=== PATIENT | female | born 1940 | race Caucasian/White ===

== ENCOUNTER 2019-12-30 04:33 | Inpatient (IN) | payer OTHER ==
[~2019-12-30] VITALS: Ht 165.1 cm; Wt 69.4 kg
[~2019-12-30 04:33] MED LIST: ALBU8HFA IH; ASPI-728 PO; ATEN-73 PO; ATOR40TA28 PO; BUDE180H IH; CITA-144 PO; FAMO20 PO; FURO40 PO; HYDR-3965 PO; IPRA3S NASAL; IRON-18 PO; NITR0.4T52 SL; NYST100033 PO; OLOD4MIS2 PO; POTA10TA PO; PRED10 PO; PREMC VG; SOTA80 PO; SUCR1TAB PO; TIOT185 IH
[2019-12-30] MEDS ORDERED: MethylPREDNISolone SOD SUCC 125 MG/2 ML VIAL IVP ONE (04:45)
[2019-12-30] MEDS ORDERED: SODIUM CHLORIDE 0.9% 1,000 ML IV ONE (04:45)
[2019-12-30] MEDS ORDERED: ALBUTEROL SULFATE 5 MG/ML 20 ML NEB SOLN [BULK] NEB ONE (04:45)
[2019-12-30] MEDS ORDERED: IPRATROPIUM BROMIDE 0.5 MG/2.5 ML NEB SOLUTION NEB ONE (04:45)
[2019-12-30 05:14] LABS: ABG A-A DIFF O2 497.5 mmHg (10-20.0); ABG BASE EXCESS -3.8 mmol/L (-2.0-3.0); ABG CARBOXYHEMOGLOBIN 0.8 % (0.0-1.5); ABG HCO3 21.6 mmol/L (22.0-26.0); ABG METHEMOGLOBIN 0.3 % (0.0-1.5); ABG OXYGEN CONTENT 21.4 mL/dL (15.0-23.0); ABG OXYHEMOGLOBIN 97.9 % (94.0-100.0); ABG PCO2 40 mmHg (35-45); ABG PH 7.353 (7.35-7.450); ABG TOTAL HEMOGLOBIN 15.3 G/dL (12.0-18.0); PO2, ARTERIAL BG 175.5 mmHg (71.0-79.0); SOURCE, BLOOD GAS ARTERIAL; TEMPERATURE, FAHRENHEIT, BG 98.6 FAHREN (96.0-98.6)
[2019-12-30 05:18] LABS: SITE, BLOOD GAS RT RADIAL
[2019-12-30 05:19] LABS: O2 DEVICE,BLOOD GAS AEROSOL MASK (ROOM AIR)
[2019-12-30 05:44] LABS: BASOPHILS % (AUTO) 0.5 % (0.0-2.0); EOSINOPHILS % (AUTO) 8.8 % (1.0-6.0); HEMATOCRIT 43.8 % (36-46); HEMOGLOBIN 14.3 g/dL (12.0-16.0); LYMPHOCYTES # (AUTO) 0.3 K/uL (1.0-4.8); LYMPHOCYTES % (AUTO) 6.3 % (22.0-44.0); MEAN CORPUSCULAR HEMOGLOBIN 31.5 pg (26.0-34.0); MEAN CORPUSCULAR HGB CONC 32.6 G/dL (31.0-37.0); MEAN CORPUSCULAR VOLUME 97 fL (80-100); MONOCYTES # (AUTO) 0.2 K/uL (0.1-1.0); MONOCYTES % (AUTO) 4.9 % (2.0-9.0); NEUTROPHILS % (AUTO) 79.5 % (40.0-70.0); PLATELET COUNT (AUTO) 200 K/uL (150-450); RED BLOOD CELL COUNT(AUTO) 4.54 MIL/uL (4.00-5.20); RED CELL DISTRIBUTION WIDTH 14.2 % (11.5-14.5)
[2019-12-30] MEDS ORDERED: PIPERACILLIN/TAZO 3.375 GM/D5W 50 ML IV ONE (05:45)
[2019-12-30] MEDS ORDERED: ACETAMINOPHEN 650 MG RECTAL SUPPOSITORY PR ONE (05:45)
[2019-12-30] MEDS ORDERED: VANCOMYCIN HCL 1 GM/D5% WATER 200 ML IV ONE (05:45)
[2019-12-30 05:49] LABS: APPEARANCE,URINE CLOUDY (CLEAR); BILIRUBIN,URINE NEGATIVE (NEGATIVE); GLUCOSE, URINE (UA) NEGATIVE (NEGATIVE); KETONES,URINE NEGATIVE (NEGATIVE); LEUKOCYTE ESTERASE ,URINE NEGATIVE (NEGATIVE); NITRATE,URINE NEGATIVE (NEGATIVE); OCCULT BLOOD,URINE NEGATIVE (NEGATIVE); PH,URINE 7.5 (5.0-8.0); PROTEIN,URINE TRACE (NEGATIVE)
[2019-12-30 05:53] LABS: BACTERIA,URINE Rare /HPF (None Seen); RBC,URINE 0-2 /HPF (0-2); SQUAMOUS EPITHELIAL CELL,UR Few /LPF (None Seen); WBC,URINE 0-2 /HPF (0-5)
[2019-12-30 06:05] LABS: ANION GAP 12 mmol/L (8-16); CALCIUM, TOTAL 9.4 mg/dL (8.8-10.5); CARBON DIOXIDE 25 mmol/L (22-29); CHLORIDE 103 mmol/L (98-107); CREATININE 1.14 mg/dL (0.60-1.30); GLOMERULAR FILTR. RATE CALC 46 mL/min (>60); GLUCOSE,RANDOM 149 mg/dL (70-110); POTASSIUM 3.2 mmol/L (3.5-5.1); SODIUM SERUM 140 mmol/L (136-145); UREA NITROGEN, BLOOD 11 mg/dL (7-18)
[2019-12-30 06:07] LABS: ALANINE AMINOTRANSFERASE 281 U/L (12-78); ALBUMIN 3.2 g/dL (3.4-5.0); ALKALINE PHOSPHATASE 166 U/L (46-116); ASPARTATE AMINOTRANSFERASE 405 U/L (15-37); BILIRUBIN,TOTAL 3.8 mg/dL (0.1-1.0); CREATINE KINASE, TOTAL ONLY 61 U/L (26-192)
[2019-12-30] MEDS ORDERED: IOVERSOL 350 MG/ML 100 ML VIAL ONE (06:16)
[2019-12-30] MEDS ORDERED: SODIUM CHLORIDE 0.9% 100 ML ONE (06:16)
[2019-12-30 06:20] LABS: B-TYPE NATRIURETIC PEPTIDE 101 pg/mL (0-100)
[2019-12-30 06:22] LABS: LACTIC ACID 3.6 mmol/L (0.4-2.0)
[2019-12-30] MEDS ORDERED: MAGNESIUM SULFATE 2 GM/WATER 50 ML IV ONE (07:30)
[2019-12-30] MEDS: POTASSIUM CHL 10 MEQ/WATER 50 ML IV PRN ×3 (08:01→10:45)
[2019-12-30] MEDS ORDERED: DEXTROSE 50%-WATER 25 GM/50 ML SYRINGE IVP PRN (11:00)
[2019-12-30] MEDS ORDERED: *CLINICAL-CEFEPIME DOSING CLINICAL ONE (11:00)
[2019-12-30] MEDS ORDERED: INSULIN LISPRO 100 UNITS/ML SQ PRN (11:00)
[2019-12-30] MEDS ORDERED: *CLINICAL-AZTREONAM DOSING CLINICAL ONE (11:00)
[2019-12-30] MEDS ORDERED: ALBUTEROL SULFATE/IPRATROPIUM 100-20 MCG/SPRAY 4 GM INHALER IH PRN (11:00)
[2019-12-30] MEDS ORDERED: DOCUSATE SODIUM 100 MG CAPSULE PO PRN (11:15)
[2019-12-30] MEDS ORDERED: BISACODYL 10 MG RECTAL RECTAL SUPPOSITORY PR PRN (11:15)
[2019-12-30] MEDS ORDERED: MAGNESIUM HYDROXIDE SUSPENSION 30 ML UDCUP PO PRN (11:15)
[2019-12-30] MEDS ORDERED: NITROGLYCERIN 0.4 MG SUBLINGUAL TABLET #25 SL PRN (11:15)
[2019-12-30] MEDS ORDERED: 0.9% SODIUM CHLORIDE 10 ML SYRINGE IVP PRN (11:15)
[2019-12-30] MEDS ORDERED: ONDANSETRON HCL 4 MG/2 ML VIAL IVP PRN (11:15)
[2019-12-30 11:33] LABS: GLUCOSE,POINT OF CARE 168 MG/DL (70-110)
[2019-12-30] MEDS ORDERED: TIOT4MIS3 IH (11:44)
[2019-12-30] MEDS ORDERED: HYDR-4061 PO (11:44)
[2019-12-30] MEDS ORDERED: PREMC VG (11:44)
[2019-12-30] MEDS ORDERED: PANT40TA25 PO (11:44)
[2019-12-30] MEDS ORDERED: BUDE180H IH (11:44)
[2019-12-30] MEDS ORDERED: CLOP75TA32 PO (11:44)
[2019-12-30 11:45] LABS: INFLUENZA TYPE A NEGATIVE FOR TYPE A (NEGATIVE); INFLUENZA TYPE B NEGATIVE FOR TYPE B (NEGATIVE)
[2019-12-30] MEDS: ASPIRIN 81 MG CHEWABLE TABLET PO SCH (12:14)
[2019-12-30] MEDS ORDERED: CEFEPIME HCL 1 GM in DEXTROSE 5%-WATER 50 ML IV ONE (12:15)
[2019-12-30] MEDS ORDERED: AZTREONAM 1 GM in DEXTROSE 5%-WATER 50 ML IV ONE (12:15)
[2019-12-30] MEDS: PANTOPRAZOLE SODIUM 40 MG DR TABLET PO SCH (12:15)
[2019-12-30 12:20] LABS: CALCIUM, TOTAL 9.2 mg/dL (8.8-10.5); CREATININE 0.98 mg/dL (0.60-1.30); MAGNESIUM 2.3 mg/dL (1.80-2.40); POTASSIUM 3.7 mmol/L (3.5-5.1)
[2019-12-30 14:41] VITALS: BP 140/77
[2019-12-30] MEDS ORDERED: HEPARIN SODIUM,PORCINE 5,000 UNITS/ML VIAL IVP PRN ×2 (14:45)
[2019-12-30] MEDS ORDERED: HEPARIN SODIUM,PORCINE 5,000 UNITS/ML VIAL IVP ONE (14:45)
[2019-12-30 15:46] LABS: HEMOGLOBIN 13.2 g/dL (12.0-16.0); MEAN CORPUSCULAR HEMOGLOBIN 30.9 pg (26.0-34.0); MEAN CORPUSCULAR HGB CONC 32.1 G/dL (31.0-37.0); MEAN CORPUSCULAR VOLUME 96 fL (80-100); PLATELET COUNT (AUTO) 150 K/uL (150-450); RED BLOOD CELL COUNT(AUTO) 4.26 MIL/uL (4.00-5.20); RED CELL DISTRIBUTION WIDTH 14.3 % (11.5-14.5)
[2019-12-30 16:04] LABS: PROTHROMBIN TIME 10.1 SEC (9.4-11.6)
[2019-12-30 16:05] LABS: BAND NEUTROPHILS % (MANUAL) 22 % (0-5); LYMPHOCYTES % (MANUAL) 11 % (22-44); PROMYELOCYTES % 1 (0-0)
[2019-12-30 16:06] LABS: MONOCYTES % (MANUAL) 6 % (2-9); SEGMENTED NEUTROPHILS % 60 % (40-70)
[2019-12-30 16:07] LABS: PLATELET MORPHOLOGY COMMENT GIANT PLTS PRESENT; WBC MORPHOLOGY TOXIC VACUOLATION
[2019-12-30 16:39] VITALS: BP 135/77
[2019-12-30 17:26] LABS: ALBUMIN 2.6 g/dL (3.4-5.0); BILIRUBIN,DIRECT 3.6 mg/dL (0.00-0.20); BILIRUBIN,TOTAL 4.5 mg/dL (0.1-1.0); TOTAL PROTEIN, SERUM 5.9 g/dL (6.4-8.2)
[2019-12-30] MEDS: ALBUTEROL SULFATE/IPRATROPIUM 100-20 MCG/SPRAY 4 GM INHALER IH SCH (18:31)
[2019-12-30] MEDS ORDERED: SODIUM CHLORIDE 0.9% 500 ML IV ONE (18:53)
[2019-12-30] MEDS: PIPERACILLIN/TAZO 3.375 GM/D5W 50 ML IV SCH ×2 (18:56→23:44)
[2019-12-30 19:40] VITALS: BP 116/56
[2019-12-30] MEDS: LACTOBACILLUS ACIDOPHILUS/BULGARICUS TABLET PO SCH (20:56)
[2019-12-30] MEDS: ESTROGENS,CONJUGATED 0.625 MG/GM 30 GM VAG CREAM VG SCH (20:56)
[2019-12-30] MEDS: SUCRALFATE 1 GM TABLET PO SCH (20:56)
[2019-12-30] MEDS: BUDESONIDE 180 MCG/INH INHALER [120] IH SCH (20:56)
[2019-12-30] MEDS ORDERED: HEPARIN SODIUM,PORCINE 5,000 UNITS/ML VIAL SQ SCH (21:00)
[2019-12-30 21:51] LABS: GLUCOMETER DEV NAME(LOC) 5N.1; GLUCOSE,POINT OF CARE 173 MG/DL (70-110)
[2019-12-30] MEDS ORDERED: AZTREONAM 1 GM in DEXTROSE 5%-WATER 50 ML IV SCH (22:00)
[2019-12-30] MEDS: HEPARIN SODIUM 25000 UNITS/D5W 250 ML IV PRN (23:47)
[2019-12-31] MEDS: ACETAMINOPHEN 325 MG TABLET PO PRN ×2 (00:08→16:19)
[2019-12-31] MEDS: ALBUTEROL SULFATE/IPRATROPIUM 100-20 MCG/SPRAY 4 GM INHALER IH SCH ×5 (00:13→23:48)
[2019-12-31 00:15] VITALS: BP 131/74
[2019-12-31 04:00] VITALS: BP 126/64
[2019-12-31] MEDS: PIPERACILLIN/TAZO 3.375 GM/D5W 50 ML IV SCH ×4 (06:12→23:47)
[2019-12-31 07:02] LABS: BASOPHILS % (AUTO) 0.1 % (0.0-2.0); EOSINOPHILS % (AUTO) 0.4 % (1.0-6.0); HEMATOCRIT 35.2 % (36-46); HEMOGLOBIN 11.9 g/dL (12.0-16.0); LYMPHOCYTES # (AUTO) 0.7 K/uL (1.0-4.8); LYMPHOCYTES % (AUTO) 6.2 % (22.0-44.0); MEAN CORPUSCULAR HEMOGLOBIN 32.8 pg (26.0-34.0); MEAN CORPUSCULAR HGB CONC 33.9 G/dL (31.0-37.0); MEAN CORPUSCULAR VOLUME 97 fL (80-100); MONOCYTES # (AUTO) 0.5 K/uL (0.1-1.0); MONOCYTES % (AUTO) 5.2 % (2.0-9.0); NEUTROPHILS # (AUTO) 9.3 K/uL (1.8-7.7); PLATELET COUNT (AUTO) 144 K/uL (150-450); RED BLOOD CELL COUNT(AUTO) 3.64 MIL/uL (4.00-5.20); RED CELL DISTRIBUTION WIDTH 14.5 % (11.5-14.5)
[2019-12-31 07:07] LABS: NEUTROPHILS % (AUTO) 88.1 % (40.0-70.0)
[2019-12-31 07:27] LABS: HEMOGLOBIN A1C 5.8 % (3.8-5.6)
[2019-12-31 07:38] VITALS: BP 151/95
[2019-12-31 07:49] LABS: ALBUMIN 2.6 g/dL (3.4-5.0); BILIRUBIN,TOTAL 1.3 mg/dL (0.1-1.0); CALCIUM, TOTAL 9.6 mg/dL (8.8-10.5); CHOL/HDL RATIO 1.9 (3.9-5.7); CREATININE 0.98 mg/dL (0.60-1.30); FREE T4 (FREE THYROXINE) 1.46 ng/dL (0.76-1.46); THYROID STIMULATING HORMONE 0.18 uIU/mL (0.36-3.74); TOTAL PROTEIN, SERUM 5.9 g/dL (6.4-8.2)
[2019-12-31] MEDS: BUDESONIDE 180 MCG/INH INHALER [120] IH SCH ×2 (08:18→20:19)
[2019-12-31] MEDS: ASPIRIN 81 MG CHEWABLE TABLET PO SCH (09:00)
[2019-12-31] MEDS ORDERED: CEFEPIME HCL 1 GM in DEXTROSE 5%-WATER 50 ML IV SCH (11:00)
[2019-12-31 11:43] VITALS: BP 133/73
[2019-12-31] MEDS ORDERED: MEBROFENIN TC99M/MCL ISOTOPE 1 EA INJ INJ ONE (14:50)
[2019-12-31] MEDS: SUCRALFATE 1 GM TABLET PO SCH ×2 (16:19→20:17)
[2019-12-31] MEDS: PANTOPRAZOLE SODIUM 40 MG DR TABLET PO SCH (16:19)
[2019-12-31] MEDS: MULTIVITAMINS WITH IRON TABLET PO SCH (16:19)
[2019-12-31] MEDS: ATORVASTATIN CALCIUM 40 MG TABLET PO SCH (16:19)
[2019-12-31] MEDS: CITALOPRAM HYDROBROMIDE 20 MG TABLET PO SCH (16:19)
[2019-12-31] MEDS: ATENOLOL 25 MG TABLET PO SCH (16:20)
[2019-12-31] MEDS: LACTOBACILLUS ACIDOPHILUS/BULGARICUS TABLET PO SCH ×2 (16:20→20:17)
[2019-12-31 19:40] VITALS: BP 116/60
[2019-12-31 19:56] LABS: GLUCOMETER DEV NAME(LOC) 5N.3; GLUCOSE,POINT OF CARE 99 MG/DL (70-110)
[2019-12-31 19:56] LABS: GLUCOMETER DEV NAME(LOC) 5N.3; GLUCOSE,POINT OF CARE 85 MG/DL (70-110)
[2019-12-31 19:56] LABS: GLUCOMETER DEV NAME(LOC) 5N.1; GLUCOSE,POINT OF CARE 98 MG/DL (70-110)
[2019-12-31] MEDS: ESTROGENS,CONJUGATED 0.625 MG/GM 30 GM VAG CREAM VG SCH ×2 (20:17→20:44)
[2019-12-31] MEDS: HEPARIN SODIUM 25000 UNITS/D5W 250 ML IV PRN (23:50)
[2020-01-01] VITALS: BP 129/70
[2020-01-01 01:22] LABS: GLUCOMETER DEV NAME(LOC) 5N.1; GLUCOSE,POINT OF CARE 72 MG/DL (70-110)
[2020-01-01 04:00] VITALS: BP 128/66
[2020-01-01] MEDS: ALBUTEROL SULFATE/IPRATROPIUM 100-20 MCG/SPRAY 4 GM INHALER IH SCH ×2 (06:22→12:42)
[2020-01-01] MEDS: PIPERACILLIN/TAZO 3.375 GM/D5W 50 ML IV SCH ×2 (06:23→12:42)
[2020-01-01 06:49] LABS: BASOPHILS % (AUTO) 0.2 % (0.0-2.0); EOSINOPHILS % (AUTO) 7.4 % (1.0-6.0); HEMATOCRIT 35.1 % (36-46); HEMOGLOBIN 11.6 g/dL (12.0-16.0); LYMPHOCYTES # (AUTO) 0.7 K/uL (1.0-4.8); LYMPHOCYTES % (AUTO) 9.5 % (22.0-44.0); MEAN CORPUSCULAR HEMOGLOBIN 31.6 pg (26.0-34.0); MEAN CORPUSCULAR VOLUME 96 fL (80-100); MONOCYTES # (AUTO) 0.5 K/uL (0.1-1.0); MONOCYTES % (AUTO) 6.2 % (2.0-9.0); NEUTROPHILS # (AUTO) 5.9 K/uL (1.8-7.7); NEUTROPHILS % (AUTO) 76.7 % (40.0-70.0); PLATELET COUNT (AUTO) 147 K/uL (150-450); RED BLOOD CELL COUNT(AUTO) 3.66 MIL/uL (4.00-5.20); RED CELL DISTRIBUTION WIDTH 14.4 % (11.5-14.5)
[2020-01-01 07:00] LABS: ALBUMIN 2.5 g/dL (3.4-5.0); BILIRUBIN,TOTAL 0.7 mg/dL (0.1-1.0); CALCIUM, TOTAL 9.3 mg/dL (8.8-10.5); CREATININE 1.03 mg/dL (0.60-1.30); POTASSIUM 3.6 mmol/L (3.5-5.1); TOTAL PROTEIN, SERUM 5.9 g/dL (6.4-8.2)
[2020-01-01] MEDS ORDERED: XYLI550M PO (07:08)
[2020-01-01 07:32] LABS: GLUCOMETER DEV NAME(LOC) 5N.1; GLUCOSE,POINT OF CARE 70 MG/DL (70-110)
[2020-01-01 08:02] VITALS: BP 122/64
[2020-01-01] MEDS: ASPIRIN 81 MG CHEWABLE TABLET PO SCH (09:00)
[2020-01-01] MEDS: CITALOPRAM HYDROBROMIDE 20 MG TABLET PO SCH (10:04)
[2020-01-01] MEDS: LACTOBACILLUS ACIDOPHILUS/BULGARICUS TABLET PO SCH (10:04)
[2020-01-01] MEDS: PANTOPRAZOLE SODIUM 40 MG DR TABLET PO SCH (10:04)
[2020-01-01] MEDS: ATENOLOL 25 MG TABLET PO SCH (10:04)
[2020-01-01] MEDS: BUDESONIDE 180 MCG/INH INHALER [120] IH SCH (10:04)
[2020-01-01] MEDS: SUCRALFATE 1 GM TABLET PO SCH (10:04)
[2020-01-01] MEDS: ATORVASTATIN CALCIUM 40 MG TABLET PO SCH (10:04)
[2020-01-01] MEDS: MULTIVITAMINS WITH IRON TABLET PO SCH (10:04)
[2020-01-01 12:01] VITALS: BP 128/69
[2020-01-02 00:14] LABS: GLUCOMETER DEV NAME(LOC) 5N.1; GLUCOSE,POINT OF CARE 74 MG/DL (70-110)
[2020-01-02 15:10] LABS: LEGIONELLA PNEUMO AG URINE Negative (Negative); ORGANISM ID Not indicated.; S PNEUMO SOURCE Urine; STREP PNEUMONIAE AG URINE Negative (Negative); STREP.PNEUMO BODY FLUID CULT. Not indicated.
[2020-01-03 10:06] LABS: QUANTIFERON+, Nil Value 0.06 IU/mL; QUANTIFERON+,Mitogen Value 0.76 IU/mL; QUANTIFERON+,TB1 Antigen Value 0.04 IU/mL; QUANTIFERON, TB GOLD PLUS Negative (Negative)
[2020-01-03 11:51] LABS: BARTONELLA QUINTANA IGG TITER Negative titer (Neg:<1:320); BARTONELLA QUINTANA IGM TITER Negative titer (Neg:<1:100)
== END 2020-01-01 14:15 | disposition short-term general hospital (02) | DRG 871 ==
LOC: EMS 04:33 → 5N 09:55
PROVIDERS: ADMIT Internal Medicine; ATTEND Internal Medicine
DX: A41.50 Gram-negative sepsis, unspecified (principal); J18.9 Pneumonia, unspecified organism; J96.21 Acute and chronic respiratory failure with hypoxia; I50.21 Acute systolic (congestive) heart failure; I21.A1 Myocardial infarction type 2; E87.2 Acidosis; J44.0 Chronic obstructive pulmonary disease with (acute) lower respiratory infection; K80.00 Calculus of gallbladder with acute cholecystitis without obstruction; R65.20 Severe sepsis without septic shock; E87.6 Hypokalemia; E83.42 Hypomagnesemia; R74.0 Nonspecific elevation of levels of transaminase and lactic acid dehydrogenase [LDH]; I11.0 Hypertensive heart disease with heart failure; E78.5 Hyperlipidemia, unspecified; Z20.828 Contact with and (suspected) exposure to other viral communicable diseases; E11.9 Type 2 diabetes mellitus without complications; E78.00 Pure hypercholesterolemia, unspecified; I25.10 Atherosclerotic heart disease of native coronary artery without angina pectoris; I25.5 Ischemic cardiomyopathy
CPT/HCPCS: 36600; 71275; 74181; 76705; 78226; 80074; 82248; 82805; 83036; 83605; 83735; 84145; 84439; 84443; 86480; 86611; 86635; 86738; 87040; 87205; 87449; 87804; 87899; 93005; 93306; 94640; 94644; 99291; A9537; J0692; J1644; J2543; J3370; J3475; J3480; J3490; J3535; J7040; J7050; J7060; 36415-L1; 36415-TC; 71045-TC; 80061-TC; U0003-CS